=== PATIENT | female | born 1975 | race Caucasian/White ===

== ENCOUNTER 2016-07-19 23:22 | Emergency (ER) | payer OTHER | END 2016-07-20 01:20 | disposition home or self-care (01) | LOC: ER 23:22 | DX: I47.1 Supraventricular tachycardia (principal); R42 Dizziness and giddiness; R06.02 Shortness of breath; R11.0 Nausea; K21.9 Gastro-esophageal reflux disease without esophagitis; I10 Essential (primary) hypertension; E78.5 Hyperlipidemia, unspecified; J45.909 Unspecified asthma, uncomplicated; Z90.49 Acquired absence of other specified parts of digestive tract; Z91.018 Allergy to other foods | CPT/HCPCS: 36415; 96374; J0153 ==